=== PATIENT | female | born 1995 | race Caucasian/White ===

== ENCOUNTER 2024-04-11 07:15 | Outpatient (CLI) | payer OTHER, SELFPAY ==
[2024-04-11 07:29] VITALS: BMI 30.2
[2024-04-11 08:04] VITALS: BP 118/62; PULSE 72; RESP 16; TEMP 36.8; O2SAT 98
[2024-04-11 08:05] VITALS: PULSE 79; O2SAT 98
--- NOTE | 2024-04-11 08:30 | PCM.HP.OB ---
HPI - General General Date of Admission: 04/11/[address], is a 29 F who presents for elective induction of labor. PFSH PFSH Home Medications ?Medication ?Instructions ?Recorded ?Last Taken ?Type vitamin with calcium 1 tab PO DAILY 04/11/24 Unknown History no.72-iron 27 mg-folic acid 1 mg tablet ( Vitamins Plus Low Iron) Allergy/AdvReac Type Severity Reaction Status Date / Time hydrocodone AdvReac Mild Vomiting Verified 04/11/24 07:31 Surgical History History of surgery Social History Smoking Status: Never smoker History Elective abortions Hx Para 2 Spontaneous abortions Hx # Term Pregnancies Ectopic pregnancies Hx # Pregnancies Multiple births # of living children NST FHR Rate Baby A Baseline: 130 Variability:: Moderate Accelerations:: 15 x 15 Decelerations:: None NST Reactive:: Yes FHR Category:: Category I Uterine Activity:: Irregular Vital Signs Vital Signs Vital Signs: 04/11/24 08:04 04/11/24 08:04 04/11/24 08:04 Temperature Temperature Source Temporal Pulse Rate 72 Respiratory Rate Blood Pressure 118/62 BP Systolic 118 BP Diastolic 62 Pulse Ox 04/11/24 08:04 04/11/24 08:04 04/11/24 08:04 Temperature 98.3 F Temperature Source Pulse Rate Respiratory Rate 16 Blood Pressure BP Systolic BP Diastolic Pulse Ox 98 04/11/24 08:05 04/11/24 08:05 Temperature Temperature Source Pulse Rate 79 Respiratory Rate Blood Pressure BP Systolic BP Diastolic Pulse Ox 98 Weight Weight: 198 lb 13.711 oz Body Mass Index (BMI) 30.2 Labs Labs Labs: Blood Type A POSITIVE Antibody Screen NEGATIVE Hct 36.4 % (37-47) L Hgb 12.1 g/dL (12.0-15.0) Syphilis Total Ab Non-reactive Assessment & Plan (1) 39 weeks gestation of : (2) Encounter for elective induction of labor: PLAN: Plan Induction placed on hold due to acuity of unit Patient may be discharged home
[2024-04-11 09:17] LABS: Absolute Lymphocyte Count 1.15 X10^3/uL (0.83-4.51); Absolute Neutrophil Count 7.7 X10^3/uL (2.0-7.7); Basophil# 0.01 X10^3/uL; Basophil% 0.1 % (0-1); Eosinophil# 0.04 X10^3/uL; Eosinophils% 0.4 % (0-5); Hematocrit 36.4 % (37-47); Hemoglobin 12.1 g/dL (12.0-15.0); Lymphocyte # 1.15 X10^3/ul (0.83-4.51); Lymphocyte % 12.1 % (19-41); Mean Corp Hgb Conc 33.2 g/dL (32-36); Mean Corpuscular Hgb 30.6 pg (27.0-32.0); Mean Corpuscular Volume 91.9 fL (81-99); Mean Platelet Vol. 11.3 fl (6.2-12.0); Monocyte# 0.57 X10^3/uL; NRBC Flagged by Analyzer 0 % (0-5); Neutrophil # 7.65 X10^3/uL (2.7-7.7); Neutrophil % 80.9 % (47-70); Platelet Count 174 K/mm3 (150-450); RBC Distribution Width CV 13.4 % (11.6-14.6); RBC Distribution Width SD 44.8 fl (35.1-43.9); Red Blood Count 3.96 M/mm3 (4.2-5.4); White Blood Count 9.5 K/mm3 (4.4-11.0)
[2024-04-11 10:10] LABS: Syphilis Antibodies Non-reactive
--- NOTE | 2024-04-11 19:21 | OB.TRI.NOTE ---
HPI - General General Date of Admission: 04/11/[address], is a 29 F who presents initially for elective induction of labor. Induction was placed on hold due to acuity of unit. Decision was made to discharge patient home to return Tuesday morning at 0700 for induction. PFSH PFSH Home Medications ?Medication ?Instructions ?Recorded ?Last Taken ?Type vitamin with calcium 1 tab PO DAILY 04/11/24 Unknown History no.72-iron 27 mg-folic acid 1 mg tablet ( Vitamins Plus Low Iron) Allergy/AdvReac Type Severity Reaction Status Date / Time hydrocodone AdvReac Mild Vomiting Verified 04/11/24 07:31 Surgical History History of surgery Social History Smoking Status: Never smoker History Elective abortions Hx Para 2 Spontaneous abortions Hx # Term Pregnancies Ectopic pregnancies Hx # Pregnancies Multiple births # of living children NST FHR Rate Baby A Baseline: 125 Variability:: Moderate Accelerations:: None Decelerations:: None NST Reactive:: Yes FHR Category:: Category I Uterine Activity:: irregular Assessment & Plan (1) Encounter for elective induction of labor: (2) 39 weeks gestation of : PLAN: Plan NST reactive, Cat. 1 tracing Not feeling many contractions D/C home with return on Tuesday for induction of labor Dr. Mcclain aware and involved with plan of care
== END 2024-04-11 12:00 | disposition home or self-care (01) ==
LOC: WP 13:35 → WPOUT 04-13 08:45
PROVIDERS: Referring Provider Advanced Practice Midwife; Visit Provider Advanced Practice Midwife
DX: O75.9 Complication of labor and delivery, unspecified (principal); Z3A.39 39 weeks gestation of pregnancy
CPT/HCPCS: 59025; 59050; 85025; 86780; 86850; 86900; 86901; 99221; G0378

== ENCOUNTER 2024-04-13 00:30 | Inpatient (IN) | payer OTHER, SELFPAY ==
[2024-04-12 21:44] VITALS: PULSE 84; RESP 16; TEMP 36.4; O2SAT 97
[2024-04-12 21:45] VITALS: BP 130/81; PULSE 79
[2024-04-12 21:46] VITALS: TEMP 36.4
[2024-04-12 21:49] VITALS: BMI 30.2
[2024-04-13] VITALS (65 sets, daily range): BP systolic 102–173; BP diastolic 53–78; PULSE 61–98; RESP 16; TEMP 36.2–36.9; O2SAT 91–100
[2024-04-13] MEDS: Lactated Ringers 1,000 ML 999 ML IV (01:15)
[2024-04-13 01:28] LABS: Absolute Lymphocyte Count 1.18 X10^3/uL (0.83-4.51); Absolute Neutrophil Count 8.8 X10^3/uL (2.0-7.7); Basophil# 0.02 X10^3/uL; Basophil% 0.2 % (0-1); Eosinophil# 0.07 X10^3/uL; Eosinophils% 0.6 % (0-5); Hematocrit 36.5 % (37-47); Hemoglobin 12.3 g/dL (12.0-15.0); Lymphocyte # 1.18 X10^3/ul (0.83-4.51); Lymphocyte % 10.9 % (19-41); Mean Corp Hgb Conc 33.7 g/dL (32-36); Mean Corpuscular Hgb 30.8 pg (27.0-32.0); Mean Corpuscular Volume 91.5 fL (81-99); Monocyte# 0.54 X10^3/uL; NRBC Flagged by Analyzer 0 % (0-5); Neutrophil # 8.81 X10^3/uL (2.7-7.7); Neutrophil % 81.7 % (47-70); Platelet Count 190 K/mm3 (150-450); RBC Distribution Width CV 13.3 % (11.6-14.6); RBC Distribution Width SD 44.3 fl (35.1-43.9); Red Blood Count 3.99 M/mm3 (4.2-5.4); White Blood Count 10.8 K/mm3 (4.4-11.0)
[2024-04-13] MEDS: fentaNYL-bupivacaine (epidural) 100 ML BAG EPIDURAL (02:10)
[2024-04-13] MEDS: Lactated Ringers 1,000 ML 200 ML IV (02:13)
[2024-04-13] MEDS: Oxytocin 15 Units/NS 250ml 15 UNITS/250 ML IV.SOLN 334 UNITS IV (03:14)
--- NOTE | 2024-04-13 03:24 | HP.PCM.OB_ITS ---
HPI - General General Date of Admission: 04/13/24 Date of Service: 04/13/[address], is a 29 F who presents with contractions. Maternal Data Information Final JOSIAS: 04/12/24 Gestational age: 40&1 PFSH PFSH Home Medications ?Medication ?Instructions ?Recorded ?Last Taken ?Type vitamin with calcium 1 tab PO DAILY 04/11/24 04/12/24 09:00 History no.72-iron 27 mg-folic acid 1 mg 1 TAB tablet ( Vitamins Plus Low Iron) Allergy/AdvReac Type Severity Reaction Status Date / Time hydrocodone AdvReac Mild Vomiting Verified 04/12/24 21:48 Surgical History [place] teeth removed History of surgery Social History Smoking Status: Never smoker History Elective abortions Hx Para 2 Spontaneous abortions Hx # Term Pregnancies Ectopic pregnancies Hx # Pregnancies Multiple births # of living children Vital Signs Vital Signs Vital Signs: 04/12/24 21:44 04/12/24 21:44 04/12/24 21:44 Temperature Temperature Source Temporal Pulse Rate 84 Respiratory Rate Blood Pressure BP Systolic BP Diastolic Pulse Ox 97 04/12/24 21:44 04/12/24 21:44 04/12/24 21:45 Temperature 97.6 F L Temperature Source Pulse Rate Respiratory Rate 16 Blood Pressure 130/81 H BP Systolic 130 BP Diastolic 81 Pulse Ox 04/12/24 21:45 04/12/24 21:46 04/13/24 01:19 Temperature 97.5 F L Temperature Source Pulse Rate 79 Respiratory Rate Blood Pressure 130/73 H BP Systolic 130 BP Diastolic 73 Pulse Ox 04/13/24 01:19 04/13/24 01:19 04/13/24 01:19 Temperature 98.1 F Temperature Source Pulse Rate 74 Respiratory Rate Blood Pressure BP Systolic BP Diastolic Pulse Ox 98 04/13/24 01:19 04/13/24 01:19 04/13/24 01:19 Temperature 98.0 F Temperature Source Temporal Pulse Rate Respiratory Rate 16 Blood Pressure BP Systolic BP Diastolic Pulse Ox 04/13/24 01:44 04/13/24 01:44 04/13/24 01:49 Temperature Temperature Source Pulse Rate 78 62 Respiratory Rate Blood Pressure BP Systolic BP Diastolic Pulse Ox 99 04/13/24 01:49 04/13/24 01:50 04/13/24 01:50 Temperature Temperature Source Pulse Rate 64 Respiratory Rate Blood Pressure 127/69 H BP Systolic 127 BP Diastolic 69 Pulse Ox 99 04/13/24 01:50 04/13/24 01:54 04/13/24 01:54 Temperature Temperature Source Pulse Rate 74 Respiratory Rate 16 Blood Pressure 126/69 H BP Systolic 126 BP Diastolic 69 Pulse Ox 04/13/24 01:54 04/13/24 01:59 04/13/24 01:59 Temperature Temperature Source Pulse Rate 73 Respiratory Rate Blood Pressure BP Systolic BP Diastolic Pulse Ox 98 99 04/13/24 02:00 04/13/24 02:00 04/13/24 02:00 Temperature Temperature Source Pulse Rate 76 Respiratory Rate 16 Blood Pressure 119/75 BP Systolic 119 BP Diastolic 75 Pulse Ox 04/13/24 02:02 04/13/24 02:04 04/13/24 02:04 Temperature 98.2 F Temperature Source Pulse Rate 70 Respiratory Rate Blood Pressure 121/66 H BP Systolic 121 BP Diastolic 66 Pulse Ox 04/13/24 02:04 04/13/24 02:04 04/13/24 02:04 Temperature Temperature Source Pulse Rate 77 Respiratory Rate 16 Blood Pressure BP Systolic BP Diastolic Pulse Ox 98 04/13/24 02:09 04/13/24 02:09 04/13/24 02:10 Temperature Temperature Source Pulse Rate 70 Respiratory Rate Blood Pressure 123/69 H BP Systolic 123 BP Diastolic 69 Pulse Ox 98 04/13/24 02:10 04/13/24 02:10 04/13/24 02:10 Temperature Temperature Source Pulse Rate 71 Respiratory Rate 16 Blood Pressure BP Systolic BP Diastolic Pulse Ox 97 04/13/24 02:14 04/13/24 02:14 04/13/24 02:14 Temperature Temperature Source Pulse Rate 68 Respiratory Rate Blood Pressure 118/70 BP Systolic 118 BP Diastolic 70 Pulse Ox 97 04/13/24 02:15 04/13/24 02:19 04/13/24 02:19 Temperature Temperature Source Pulse Rate 67 Respiratory Rate 16 Blood Pressure BP Systolic BP Diastolic Pulse Ox 99 04/13/24 02:20 04/13/24 02:20 04/13/24 02:20 Temperature Temperature Source Pulse Rate 68 Respiratory Rate 16 Blood Pressure 118/60 BP Systolic 118 BP Diastolic 60 Pulse Ox 06/07/24 02:20 04/13/24 02:24 04/13/24 02:24 Temperature Temperature Source Pulse Rate 69 Respiratory Rate Blood Pressure BP Systolic BP Diastolic Pulse Ox 97 99 04/13/24 02:25 04/13/24 02:25 04/13/24 02:25 Temperature Temperature Source Pulse Rate 66 Respiratory Rate 16 Blood Pressure 127/67 H BP Systolic 127 BP Diastolic 67 Pulse Ox 04/13/24 02:25 04/13/24 02:29 04/13/24 02:29 Temperature Temperature Source Pulse Rate 63 Respiratory Rate Blood Pressure 123/71 H BP Systolic 123 BP Diastolic 71 Pulse Ox 97 04/13/24 02:29 04/13/24 02:29 04/13/24 02:34 Temperature Temperature Source Pulse Rate 71 Respiratory Rate 16 Blood Pressure BP Systolic BP Diastolic Pulse Ox 97 04/13/24 02:34 04/13/24 02:39 04/13/24 02:39 Temperature Temperature Source Pulse Rate 62 Respiratory Rate Blood Pressure BP Systolic BP Diastolic Pulse Ox 97 97 04/13/24 02:44 04/13/24 02:44 04/13/24 03:00 Temperature Temperature Source Temporal Pulse Rate 73 Respiratory Rate Blood Pressure BP Systolic BP Diastolic Pulse Ox 98 04/13/24 03:00 04/13/24 03:00 04/13/24 03:00 Temperature 98.2 F Temperature Source Pulse Rate Respiratory Rate 16 Blood Pressure BP Systolic BP Diastolic Pulse Ox 96 04/13/24 03:01 04/13/24 03:01 04/13/24 03:06 Temperature Temperature Source Pulse Rate 64 Respiratory Rate Blood Pressure 124/71 H 173/78 H BP Systolic 124 173 BP Diastolic 71 78 Pulse Ox 04/13/24 03:06 04/13/24 03:07 04/13/24 03:07 Temperature Temperature Source Pulse Rate 95 61 Respiratory Rate Blood Pressure 120/58 L BP Systolic 120 BP Diastolic 58 Pulse Ox Weight Weight: 198 lb 6 oz Body Mass Index (BMI) 30.2 Labs Labs Labs: Blood Type A POSITIVE Antibody Screen NEGATIVE Hct 36.5 % (37-47) L Hgb 12.3 g/dL (12.0-15.0) Syphilis Total Ab Non-reactive Assessment & Plan (1) 40 weeks gestation of : COMMENT: @ 40&1 in labor PLAN: Plan Patient admitted to L&D as was in early labor and was scheduled for morning induction. Patient quickly progressed from 4cm to complete. Please see kathe ragland note. Pain - epidural GBS negative
--- NOTE | 2024-04-13 03:27 | EX.PCM.OBRPT ---
Maternal Data Information Final JOSIAS: 04/12/24 Gestational age: 40&1 Vaginal Delivery Maternal Presentation Maternal Presentation: Active Labor Operative Information Date of Procedure: 04/13/24 Pre-Operative Diagnosis: Labor Post-Operative Diagnosis: Labor Surgery / Procedure Performed: Spontaneous Vaginal Delivery Type of Anesthesia: Epidural Estimated Blood Loss: 350ml Findings Description of Procedure: Amniotomy performed. Patient prepped & draped when C/C/+2. She pushed well to deliver the head. head gently guided to allow delivery of anterior and posterior shoulders. No excess traction placed on head. Body delivered and 3VC clamped & cut in delayed fashion. Placenta delivered with gentle traction and good uterine tone obtained. Presentation: ROSALBA Amniotic Membrane Rupture Type: Artificial Amniotic Fluid Description: Moderate meconium Placental Delivery Description: Expressed Placenta Disposition: [facility] Specimen(s) Removed: Placenta Cord Vessel Description: 3 Vessels Cord Entanglement: None Infant A Gender: Female (Heidy) (1 minute): 9 (5 minute): 9 Delayed Cord Clamping: Yes Post Vaginal Delivery Medications Given After Delivery: IV Pitocin Episiotomy Description: None Laceration: None Complication Complications: None
[2024-04-13] MEDS: Oxytocin 15 Units/NS 250ml 15 UNITS/250 ML IV.SOLN 83 UNITS IV (03:45)
[2024-04-13 08:02] LABS: Syphilis Antibodies Non-reactive
[2024-04-14 00:06] VITALS: BP 117/71; PULSE 84; RESP 16; TEMP 36.4
[2024-04-14 03:23] VITALS: BP 112/61; PULSE 64; PULSE 83; RESP 16; TEMP 36.4; O2SAT 97
[2024-04-14 07:31] VITALS: BP 109/62; PULSE 65; TEMP 28.7
[2024-04-14 07:45] VITALS: BP 109/62; PULSE 68; RESP 16; TEMP 36.4; O2SAT 97
--- NOTE | 2024-04-14 09:58 | PCM.DC.SUM ---
Providers Date of Admission: 04/13/24 Primary Care Physician: No Primary Care Phys Reason For Visit: VAG Diagnosis Discharge Diagnosis (1) 40 weeks gestation of : Status: Acute Code(s): Z3A.40 - 40 weeks gestation of (2) (spontaneous vaginal delivery): Status: Acute Code(s): O80 - Encounter for full-term uncomplicated delivery (3) Care and examination of lactating mother: Status: Acute Code(s): Z39.1 - Encounter for care and examination of lactating mother Plan PPD 1 Routine care support D//C home with follow up in office Medications at Discharge Home Medications vitamin with calcium no.72-iron 27 mg-folic acid 1 mg tablet ( Vitamins Plus Low Iron) 1 tab PO DAILY 04/11/24 acetaminophen 500 mg tablet 1,000 mg (2 x 500 mg) PO Q6H PRN PRN Pain 1-10 Or Fever #0 tabs 04/14/24 ibuprofen 600 mg tablet 600 mg PO Q6H PRN PRN Pain Score 1-10 #0 tabs 04/14/24 Hospital Course Operations None Procedures None Summary of Care Provided Minutes Spent on Discharge: 15 Hospital Course: and hospital course was uneventful Physical Exam Const alert and no apparent distress General Appearance: cooperative and comfortable Exam Limitations: no limitations HEENT normocephalic Eyes General Eye: normal appearance of both eyes Neck full ROM General: normal visual inspection Chest Chest: symmetrical chest wall rise Resp normal respiratory effort and normal air movement Effort and Inspection: symmetric chest movement Auscultation: clear to auscultation bilaterally Cardio regular rate and regular rhythm GI normal to inspection, nondistended, normoactive bowel sounds Back/Spine normal ROM Extremity full ROM and no calf tenderness General Extremity: normal exam except as noted Skin no rashes or lesions noted Neuro CN's II-XII intact bilaterally Psych mental status grossly normal Weight / BMI Weight Weight: 198 lb 6 oz Body Mass Index (BMI) 30.2 ABG / Lab / Microbiology Data 04/13/24 01:10 D/C Instructions Discharge Diet: No restrictions May resume sexual activity in: 6-8 weeks Weight Bearing Status: Weight bearing as tolerated Call your doctor if you observe: Fever of 101 or Higher, Inability to urinate, Using more than 1 pad per hour, Shortness of breath, Chest pain, Calf discomfort and Uncontrolled pain Please Follow Up With: Sasha Salazar CNM When: 2 weeks virtual visit/ 6 weeks in office Meaningful Use Info Meaningful Use Meaningful Use Diagnoses (Choose all that apply): None applicable Ischemic Stroke Statin Dosing Therapy Reference: STATIN DOSE THERAPY REFERENCE: * Patients > 75 years receive moderate or high dose statin therapy. * Patients 75 years or YOUNGER should receive HIGH intensity statin dose unless contraindicated. You will be required to document reason for non-treatment if statin daily dose does not meet guidelines. HIGH DOSE STATIN THERAPY DAILY Atorvastatin > than or = to 40 mg Rosuvastatin > than or = to 20 mg Amlodipine + Atorvastatin > than or = to 2.5/40 mg Ezetimibe + Simvastatin 10/80 mg Simvastatin 80mg Discharge Plan Admission Admit Date/Time: 04/13/24 00:30 Primary Reason for Your Visit: Labor and Delivery Attending Provider: Dedrick King Primary Care Provider: Care Physician,No Primary Discharge Orders/Prescriptions Prescriptions: New acetaminophen 500 mg Tablet 1,000 mg PO Q6H PRN PRN (Reason: Pain 1-10 Or Fever) Qty: 0 0RF ibuprofen 600 mg Tablet 600 mg PO Q6H PRN PRN (Reason: Pain Score 1-10) Qty: 0 0RF Continued Vitamin Plus Low Iron 27 mg iron- 1 mg tablet 1 tab PO DAILY Referrals / Follow Up: Sasha Salazar CNM [Med Staff - Adv Practice Prof] - Care Physician,No Primary [Primary Care Provider] - Disposition Disposition (needs filled in before D/C Order can be placed): Home, Self Care
== END 2024-04-14 11:10 | disposition home or self-care (01) | DRG 807 ==
LOC: WPOUT 00:44 → WP 00:44
PROVIDERS: Admitting Provider Obstetrics & Gynecology; Visit Provider Obstetrics & Gynecology
DX: O48.0 Post-term pregnancy (principal); Z37.0 Single live birth; O77.0 Labor and delivery complicated by meconium in amniotic fluid; Z3A.40 40 weeks gestation of pregnancy
CPT/HCPCS: 59025; 59050; 85025; 86780; 86850; 86900; 86901; 99221; J7120; G0378